=== PATIENT | female | born 1995 | race Caucasian/White ===

== ENCOUNTER 2022-06-01 10:48 | Day surgery (SDC) | payer OTHER ==
[2022-05-28 11:25] LABS: Hemoglobin 13.1 g/dL (12.0-15.5); Mean Corpuscular HGB CONC 33.2 g/dL (32.0-36.0); Mean Corpuscular Hemoglobin 30.3 pg (27.0-33.0); Mean Corpuscular Volume 91.2 fl (81.6-98.3); Mean Platelet Volume 9.1 fl (7.4-10.4); Platelet Count 443 10x3/uL (150-450); RBC Distribution Width 11.9 % (11.5-14.5); Red Blood Cell (RBC) Count 4.32 10x6/uL (3.90-5.03); White Blood Cell (WBC) Count 6.9 10x3/uL (3.5-10.5)
[2022-05-28 11:33] LABS: BHCG - Serum Negative (NEGATIVE); Pregs Control Bar Appear? YES (CONTROL BAR)
[2022-05-28 11:34] LABS: Pregs Control Background? CLEAR/WHITE (CLR/WHITE)
[2022-05-28 13:45] VITALS: BMI 20.3
[2022-06-01] MEDS ORDERED: Gabapentin 300 MG CAP ONE (12:51)
[2022-06-01] MEDS ORDERED: Famotidine/PF 20 mg/2ml Vial ONE (12:51)
[2022-06-01] MEDS ORDERED: CeleCOXIB 100 MG CAP ONE (12:51)
[2022-06-01] MEDS ORDERED: PROPOFOL 20 ML ONE (13:16)
[2022-06-01] MEDS ORDERED: Fentanyl 100 MCG/2 ML VIAL ONE (13:16)
[2022-06-01] MEDS ORDERED: Bupivacaine HCl 0.5%/Epinephrine 1:200,000/PF 30 ml Vial ONE (13:18)
[2022-06-01] MEDS ORDERED: Rocuronium Bromide 10 MG/ML (10ML VIAL) ONE (13:18)
[2022-06-01] MEDS ORDERED: Dexamethasone 20 MG/5 ML VIAL ONE (13:18)
[2022-06-01] MEDS ORDERED: Ondansetron PF 4 MG/2 ML Vial ONE (13:18)
[2022-06-01] MEDS ORDERED: Dexmedetomidine 200 MCG/2 ML VIAL ONE (13:25)
[2022-06-01] MEDS ORDERED: CEFAZOLIN 2 GM VIAL ONE (13:28)
[2022-06-01] MEDS ORDERED: ePHEDrine Sulfate 50 MG/10 ML VIAL ONE (13:49)
[2022-06-01] MEDS ORDERED: Ketorolac Tromethamine 30 MG/ML VIAL ONE (14:50)
[2022-06-01] MEDS ORDERED: Glycopyrrolate 0.2 MG/ML 5 ML SYRINGE ONE (14:50)
== END 2022-06-01 17:15 | disposition home or self-care (01) ==
LOC: CSHSDC 10:48
PROVIDERS: ATTEND Obstetrics & Gynecology
PROC: 0UB04ZZ Excision of Right Ovary, Percutaneous Endoscopic Approach (ICD-10-PCS; principal; 2022-06-01)
DX: D27.9 Benign neoplasm of unspecified ovary (principal); N80.30 Endometriosis of pelvic peritoneum, unspecified; G43.909 Migraine, unspecified, not intractable, without status migrainosus; Z91.040 Latex allergy status; Z91.011 Allergy to milk products; Z79.899 Other long term (current) drug therapy
CPT/HCPCS: 36415; 84703; 85027; 86850; 86900; 86901; 88305; 88307; J1100; J1885; J2405; J2704; J3010; S0028

== ENCOUNTER 2022-06-15 14:25 | Emergency (ER) | payer OTHER ==
[~2022-06-15 14:25] MED LIST: Iopamidol 300 61% 100 ML VIAL FS ONE
[2022-06-15] MEDS ORDERED: Ketorolac Tromethamine 30 MG/ML VIAL ONE (14:56)
[2022-06-15] MEDS ORDERED: Ondansetron PF 4 MG/2 ML Vial ONE (14:56)
[2022-06-15 15:10] LABS: Bilirubin Neg (Negative); Blood, Urine 150 (Negative); Clarity Slightly Cloudy (Clear); Glucose, Urine (Dipstick) Normal (Negative); Ketone, Urine 5 mg/dL (Negative); Leukocyte 500 (Negative); Nitrite Negative (Negative); Protein, Urine (Dipstick) Negative (Neg-Trace)
[2022-06-15 15:11] LABS: #Eosinphils 0.3 10x3/uL (0.0-0.5); #Monocytes 0.5 10x3/uL (0.0-1.1); #Neutrophils 8.5 10x3/uL (1.5-8.4); %Basophils 0.4 % (0.0-2.0); %Eosinophils 2.8 % (0.0-6.0); %Lymphocytes 14.5 % (18.0-47.0); %Monocytes 4.7 % (0.0-10.0); %Neutrophils 77.3 % (40.0-75.0); Hemoglobin 11.5 g/dL (12.0-15.5); Mean Corpuscular HGB CONC 34.4 g/dL (32.0-36.0); Mean Corpuscular Hemoglobin 30.7 pg (27.0-33.0); Mean Corpuscular Volume 89.3 fl (81.6-98.3); Mean Platelet Volume 9.7 fl (7.4-10.4); Platelet Count 385 10x3/uL (150-450); RBC Distribution Width 11.9 % (11.5-14.5); Red Blood Cell (RBC) Count 3.74 10x6/uL (3.90-5.03); White Blood Cell (WBC) Count 10.9 10x3/uL (3.5-10.5)
[2022-06-15 15:17] LABS: ALT (SGPT) 60 U/L (8-55); Albumin 3.9 g/dL (3.5-5.0); Alkaline Phosphatase 51 U/L (40-110); Anion Gap 16 mmol/L (10-20); BUN (Urea Nitrogen) 8 mg/dL (7.0-18.7); Bilirubin, Total 1.7 mg/dL (0.2-1.2); Calc. Creatinine Clearance 0 mL/min (70-130); Calcium 9.2 mg/dL (7.8-10.44); Carbon Dioxide 20 mmol/L (22-29); Chloride 104 mmol/L (98-107); Estimated GFR 96; Globulin 3.5 g/dL (2.4-3.5); Glucose 96 mg/dL (70-105); Potassium 4.3 mmol/L (3.5-5.1); Protein, Total 7.4 g/dL (6.0-8.3); Sodium 136 mmol/L (136-145)
[2022-06-15 15:34] LABS: AST (SGOT) 28 U/L (5-34)
[2022-06-15 15:38] LABS: Squamous Epithelial Greater than 50 HPF (0-3)
[2022-06-15 15:39] LABS: Bacteria/HPF 3+ HPF (None Seen)
[2022-06-15 15:48] LABS: BHCG - Serum Negative (NEGATIVE); Pregs Control Background? CLEAR/WHITE (CLR/WHITE); Pregs Control Bar Appear? YES (CONTROL BAR)
== END 2022-06-15 17:08 | disposition home or self-care (01) ==
LOC: CSHERS 14:25
DX: N30.00 Acute cystitis without hematuria (principal); G43.909 Migraine, unspecified, not intractable, without status migrainosus; Z48.89 Encounter for other specified surgical aftercare
CPT/HCPCS: 74177; 80053; 81003; 81015; 84703; 85025; 87086; 96374; 96375; J1885; J2405; Q9967